=== PATIENT | female | born 1970 | race African-American/Black ===

== ENCOUNTER → 2017-03-13 16:47 | Outpatient (CLI) | payer BC | END | disposition home or self-care (01) | LOC: D.MAMMO 14:30 | DX: N64.52 Nipple discharge (principal) ==

== ENCOUNTER → 2018-03-16 10:24 | Outpatient (CLI) | payer BC | END | disposition home or self-care (01) | LOC: D.MAMMO 02-13 14:00 | DX: Z12.31 Encounter for screening mammogram for malignant neoplasm of breast (principal) ==

== ENCOUNTER 2019-03-29 08:00 | Outpatient (CLI) | payer BC | END 2019-03-29 09:00 | disposition home or self-care (01) | LOC: D.MAMMO 08:00 | PROVIDERS: ATTEND Family Medicine | DX: Z12.31 Encounter for screening mammogram for malignant neoplasm of breast (principal) ==

== ENCOUNTER → 2019-12-30 19:41 | Outpatient (CLI) | payer BC | END | disposition home or self-care (01) | LOC: D.MAMMO 15:00 | PROVIDERS: ATTEND Family Medicine | DX: N64.52 Nipple discharge (principal) ==

== ENCOUNTER 2020-01-05 08:00 | Outpatient (CLI) | payer BC | END 2020-01-05 08:01 | disposition home or self-care (01) | LOC: D.US 08:00 | PROVIDERS: ATTEND Family Medicine | DX: N63.20 Unspecified lump in the left breast, unspecified quadrant (principal); I10 Essential (primary) hypertension; E66.01 Morbid (severe) obesity due to excess calories; Z68.41 Body mass index [BMI] 40.0-44.9, adult; N64.52 Nipple discharge ==

== ENCOUNTER 2020-02-11 05:39 | Day surgery (SDC) | payer BC ==
[~2020-02-11] VITALS: Ht 154.9 cm; Wt 101.6 kg
--- NOTE | ~2020-02-11 | OP ---
PATIENT NAME: CELENA MENCHACA MEDICAL RECORD: [id number] :72 LOCATION:D.OPS ADMISSION DATE: SURGEON: PRINCESS GAMBLE MD DATE OF OPERATION: 02/11/2020 PREOPERATIVE DIAGNOSES: 1. Left breast mass. 2. Hypertension. POSTOPERATIVE DIAGNOSES: 1. Left breast mass. 2. Hypertension. PROCEDURE: Needle localization of left breast excisional biopsy. SURGEON: Princess Gamble MD REPORT OF OPERATION: The patient underwent stereotactic needle localization for a mass underneath the left nipple areolar complex. The patient was then taken to the operating room and the breast was prepped and draped in sterile fashion. A semicircular incision was made on the inferior aspect of the nipple areolar complex on the left side. Electrocautery was used to dissect through the subcutaneous tissues. We were able to undermine the tissue of the nipple areolar complex to the wire. We then eviscerated the wire through our incision. We took out a core of tissue about 2.5 to 3 cm in size around the wire, incorporating the wire and the clip. Once we got the specimen out, we marked it appropriately and sent it to mammography and the complete wire and the previously placed clips were all noted to be within the specimen. We then irrigated out the wound with normal saline and any bleeding that was found was treated with electrocautery. The subcutaneous tissues were infused with a total of 10 mL of 0.25% Marcaine with epinephrine and then closed with subcutaneous 5-0 Monocryl. The skin incisions were all closed with subcutaneous 5-0 Monocryl and dressed appropriately. COMPLICATIONS: None. CONDITION: Stable. ANESTHESIA: General endotracheal and local. BLOOD LOSS: Minimal. TRANSINT:[id number] Voice Confirmation ID: [id number] DOCUMENT ID: [id number] PRINCESS GAMBLE MD CC: [id number] DICTATION DATE: 02/11/20 1010 BITE BLOCK MAKER: 02/11/20 1659 [facility] 02/11/20 [id number] [place] [address]
[~2020-02-11 05:39] MED LIST: BENADRYL25 MG PO; LOPRESSOR25 MG PO; LOSARTAN-HCTZ1 EAC1 PO; NEXIUM20 MG PO
[2020-02-11 06:13] LABS: HEMOGLOBIN 12.7 g/dL (12-16); MCH 30.5 pg (26.0-34.0); MCHC 33.4 g/dL (31.0-37.0); MCV 91.3 fL (80.0-100.0); MEAN PLATELET VOLUME 9.1 fL (7.4-10.4); RBC 4.16 10x6/uL (4.00-5.40); WBC 7.7 10x3/uL (4.8-10.8)
[2020-02-11 07:56] VITALS: BP 110/66; Ht 154.9 cm; Wt 101.6 kg
[2020-02-11] MEDS ORDERED: HYDROCODON-ACE1 EA10 PO (10:07)
--- NOTE | 2020-02-11 10:39 | NUR ---
1031-REC'D FROM RR AWAKE AND ALERT,VSS. DENIES PAIN.DRESSING CDI. REVIEWED DISCHARGE CRITERIA. CL IN EASY REACH
--- NOTE | 2020-02-11 13:23 | NUR ---
1145-DISCHARGE CRITERIA MET. REMOVED IV WITH CATH INTACT,DISPOSED INTO SHAPRS,COVERED SITE WITH GUAZE,SECURED WITH MEDIPORE TAPE.
--- NOTE | 2020-02-11 13:24 | NUR ---
1155-PT DRESSED. DRESSING CDI. PAIN 12/20. VSS. REVIEWED POST OPERATIVE INSTRUCTIONS AND FOLLOW UP APPOINTMENT. VERBALIZED UNDERSTANDING. ESCORTED OUT VIA W/C WITH SPOUSE AWAITING TO DRIVE HOME
== END 2020-02-11 11:55 | disposition home or self-care (01) ==
LOC: D.OPS 05:39 → D.MAMMO 08:00 → D.OPS 08:00 → EDSTATUS 08:00 → D.OPS 11:55
PROVIDERS: ATTEND Surgery
DX: N63.22 Unspecified lump in the left breast, upper inner quadrant (principal); I10 Essential (primary) hypertension

== ENCOUNTER 2021-01-01 08:00 | Outpatient (CLI) | payer BC ==
[~2021-01-01 08:00] MED LIST changes: +HYDROCODON-ACE1 EA10 PO
== END 2021-01-01 08:01 | disposition home or self-care (01) ==
LOC: D.MAMMO 08:00
PROVIDERS: ATTEND Family Medicine
DX: Z12.31 Encounter for screening mammogram for malignant neoplasm of breast (principal)

== ENCOUNTER 2021-01-15 14:00 | Outpatient (CLI) | payer BC | END 2021-01-15 23:59 | disposition home or self-care (01) | LOC: D.MAMMO 14:00 | PROVIDERS: ATTEND Family Medicine | DX: R92.8 Other abnormal and inconclusive findings on diagnostic imaging of breast (principal) ==

== ENCOUNTER → 2021-01-25 08:00 | Outpatient (CLI) | payer BC | END | disposition home or self-care (01) | LOC: D.MAMMO 08:00 | PROVIDERS: ATTEND Family Medicine | DX: R92.0 Mammographic microcalcification found on diagnostic imaging of breast (principal) ==